=== PATIENT | male | born 1990 | race Caucasian/White ===

== ENCOUNTER → 2018-06-12 11:18 | Outpatient (CLI) | payer OTHER, SELFPAY ==
--- NOTE | 2018-06-12 11:33 | XR_ITS ---
XR ankle RT min 3V HISTORY: Right ankle pain ITS.REASON: RT ANKLE TENDINITIS ORDERING PHYSICIAN: Jose Nicolas MD PATIENT AGE: 28 years Comparison: None FINDINGS: No fracture or dislocation. No lytic or blastic change. There is normal mineralization.. The joint spaces are well-preserved. No significant degenerative/arthritic changes. No erosive changes evident. IMPRESSION: Negative ankle, no acute finding
== END ==
PROVIDERS: PCP Internal Medicine Adolescent Medicine; Visit Provider Internal Medicine Adolescent Medicine
DX: M76.61 Achilles tendinitis, right leg (principal)
CPT/HCPCS: 73610

== ENCOUNTER 2018-06-12 11:48 | Outpatient (RCR) | payer OTHER, SELFPAY | END 2018-06-12 11:55 | disposition home or self-care (01) | LOC: PT 11:48 | PROVIDERS: Visit Provider Internal Medicine Adolescent Medicine | DX: M76.61 Achilles tendinitis, right leg (principal) | CPT/HCPCS: 97760 ==

== ENCOUNTER → 2018-06-28 10:34 | Outpatient (CLI) | payer OTHER, SELFPAY ==
[2018-06-28 11:12] LABS: Basophils % 0.3 % (0.1-2.0); Eosinophils # 0.1 K/mm3 (0.0-0.4); Eosinophils % 1.1 % (0.1-12.0); Hematocrit 48.3 % (42.0-52.0); Hemoglobin 16.5 g/dL (14.1-18.0); Lymphocytes % 21.4 % (10-50); Mean Corpuscular HGB Conc 34.1 g/dL (31.8-35.4); Mean Corpuscular Volume 91.1 fl (80-94); Mean Platelet Volume 7.1 fl (7.4-10.4); Monocytes # 0.6 K/mm3 (0.1-1.0); Monocytes % 6.3 % (1.7-9.3); Neutrophils # 6.7 K/mm3 (1.8-7.8); Neutrophils % 70.7 % (37.0-80.0); Platelet Count 158 K/mm3 (142-424); Red Cell Distribution Width 12.4 % (11.5-17.5); White Blood Count 9.5 K/mm3 (4.8-10.8)
[2018-06-28 13:02] LABS: Alanine Aminotransferase 60 U/L (12-78); Albumin/Globulin Ratio 1.3 (1.1-1.8); Alkaline Phosphatase 101 U/L (46-116); Anion Gap 8.7 mEq/L (5-15); Aspartate Amino Transferase 18 U/L (15-37); Bilirubin,Total 0.4 mg/dL (0.2-1.0); Blood Urea Nitrogen 14 mg/dL (7-18); Calcium 9.4 mg/dL (8.5-10.1); Carbon Dioxide 31 mmol/L (21.0-32.0); Chloride 100 mmol/L (98-107); Creatinine,Serum 0.93 mg/dL (0.70-1.30); Estimated Glomerular Filt Rate 97 ml/min (>60); GFR (African American) 117 ML/MIN (>60); Globulin 3.2 gm/dl (1.3-3.2); Glucose 93 mg/dL (74-106); Potassium 4.7 mmoL/L (3.5-5.1); Sodium 135 mmol/L (136-145); Total Protein,Serum 7.2 gm/dL (6.4-8.2)
== END ==
PROVIDERS: Visit Provider Internal Medicine Adolescent Medicine
DX: I88.9 Nonspecific lymphadenitis, unspecified (principal)
CPT/HCPCS: 36415; 80053; 85025

== ENCOUNTER 2020-06-08 17:52 | Emergency (ER) | payer SELFPAY ==
[2020-06-08 17:54] VITALS: BP 116/86; PULSE 88; RESP 20; TEMP 37; O2SAT 98; BMI 24.7
--- NOTE | 2020-06-08 18:11 | HMH.EDUTC ---
[facility] [place] Disposition Clinical Impression: Conjunctivitis Qualifiers: Conjunctivitis type: unspecified Laterality: right Qualified Code(s): H10.9 - Unspecified conjunctivitis Disposition: Home, Self-Care Condition on Discharge: Good Instructions: How to Instill Eye Drops, Conjunctivitis, DI for Conjunctivitis, Polymyxin B and Trimethoprim Ophthalmic Additional Instructions: Wash hands well before and after applying eye drops in your eye Do not rub or scratch your eye Clean with warm wash rag with baby shampoo to prevent further irritation Follow up with Eye Doctor in the next couple of days if no improvement or immediately if any worsening of symptoms Return if needed Straight to ER if any life threatening symptoms Prescriptions: Polymyxin B Sulf/Trimethoprim [Polytrim Eye Drops] 2 drops EYE-RIGHT Q6H 7 Days #1 bottle Transmission Status: Received by [id number] Referrals: Jose Nicolas MD [Primary Care Provider] - As needed [facility] [Other] - As needed Forms: Work/School Release Time of Disposition: 18:23 Medical Decision Making - Oh Inquiry Pt receiving controlled substance: No Oh was queried for this patient: No Vital Signs: 06/08/20 17:54 06/08/20 18:27 Temperature 98.6 F 98.6 F Temperature Source Oral Oral Pulse Rate 88 Pulse Rate [Right Brachial] 88 Respiratory Rate 20 20 Blood Pressure 116/86 Blood Pressure [Right Arm] 116/86 Blood Pressure Mean [Right Arm] 96 Blood Pressure Source Automatic Cuff Blood Pressure Source [Right Arm] Automatic Cuff Blood Pressure Position Sitting Blood Pressure Position [Right Arm] Sitting 02 Sat by Pulse Oximetry 98 Oxygen Delivery Method Room Air Room Air - Physician Consults Physician Consulted: Dr Mckeon Time: 18:14 Reason -: Opthalmology Eval/Care Comment/Response: Patient discussed with Dr Mckeon and he agreed with treatment with Polytrim 2 drops q6h and follow up at the clinic if no improvement or any worsening of symptoms [facility] [place] HPI - General Stated complaint: foreign body in right eye Time Seen by Provider: 06/08/20 17:55 Mode of Arrival: Ambulatory Source of Information: Patient HEENT Symptoms (Recalled from RN notes): Yes Resp Symptoms (Recalled from RN notes): No Skin Symptoms (Recalled from RN notes): No MS Symptoms (Recalled from RN notes): No Functional Status (Recalled from RN notes): N/A - History of Present Illness Provider Complaint: Patient states that he woke up this morning with his right eye matted shut and draining sticky slim States that today his eye was looking red and continued to have drainage and felt like it had a film of slim in it and he would wipe it out and it would come back State that this evening he tried some left over erythromycin ointment in it and then came in to get it checked Denies getting anything in his eye and denies known injury - Related Data Previous Rx's Medication Instructions Recorded Polymyxin B Sulf/Trimethoprim 2 drops EYE-RIGHT Q6H 7 Days #1 06/08/20 [Polytrim Eye Drops] bottle Allergies Allergy/AdvReac Type Severity Reaction Status Date / Time No Known Allergies Allergy Verified 06/08/20 18:11 - Worker's Comp Is this a Worker's Comp case?: No [facility] History - Hepatitis A Screen Drug use history?: No High risk sexual behaviors?: No History of sexually transmitted infection?: No Currently employed?: No Childcare worker?: No Do you have indoor plumbing?: Yes Do you have electricity?: Yes Attestation statement:: This patient has been screened for Hepatitis A risk factors. I have reviewed the patient's past medical history: Yes - Social History Smoking Status: Current every day smoker Tobacco Type: cigarettes # Packs/Day (cigarettes): 1 Alcohol Intake: never Occupational Status: employed ROS Obtained: Yes All systems reviewed & no additional complaints, Yes Systems reviewed as appropriate & no additional complaints - Constitutional
[2020-06-08 18:27] VITALS: BP 116/86; PULSE 88; RESP 20; TEMP 37; O2SAT 98
== END 2020-06-08 18:29 | disposition home or self-care (01) ==
PROVIDERS: Emergency Provider Nurse Practitioner; PCP Internal Medicine Adolescent Medicine
DX: H10.31 Unspecified acute conjunctivitis, right eye (principal); F17.210 Nicotine dependence, cigarettes, uncomplicated
CPT/HCPCS: 99202; G0463

== ENCOUNTER 2022-10-31 16:52 | Emergency (ER) | payer OTHER, SELFPAY ==
[2022-10-31 16:55] VITALS: BP 160/106; PULSE 93; RESP 18; TEMP 36.6; O2SAT 98; BMI 24.3
--- NOTE | 2022-10-31 17:04 | PC.NURSE ---
Dr. Grant at [facility]
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
[2022-10-31 17:30] VITALS: BP 139/93; PULSE 98; RESP 18; O2SAT 98
--- NOTE | 2022-10-31 17:31 | PC.NURSE ---
pt going to radiology.
[2022-10-31 17:34] LABS: Basophils % 0.2 % (0.1-2.0); Eosinophils # 0.2 K/mm3 (0.0-0.4); Hematocrit 50.3 % (42.0-52.0); Lymphocytes # 1.7 K/mm3 (0.7-4.5); Lymphocytes % 10.4 % (10-50); Mean Corpuscular HGB Conc 33.8 g/dL (31.8-35.4); Mean Corpuscular Hemoglobin 31.2 pg (27.0-31.2); Mean Corpuscular Volume 92.3 fl (80-94); Mean Platelet Volume 7.8 fl (7.4-10.4); Monocytes # 0.9 K/mm3 (0.1-1.0); Monocytes % 5.3 % (1.7-9.3); Neutrophils # 13.7 K/mm3 (1.8-7.8); Neutrophils % 83.1 % (37.0-80.0); Platelet Count 187 K/mm3 (142-424); Red Blood Count 5.45 M/mm3 (4.60-6.20); Red Cell Distribution Width 12.9 % (11.5-17.5); White Blood Count 16.5 K/mm3 (4.8-10.8)
[2022-10-31 17:35] LABS: Chloride 103 mmol/L (98-107); Sodium 138 mmol/L (136-145)
[2022-10-31 17:37] LABS: MANUAL DIFFERENTIAL MANUAL DIFFERENTIAL (MANUAL DIFF)
[2022-10-31 17:38] LABS: Alanine Aminotransferase 57 U/L (12-78); Albumin Level 4.4 g/dl (3.5-5.0); Albumin/Globulin Ratio 1.3 (1.1-1.8); Alkaline Phosphatase 115 U/L (38-126); Aspartate Amino Transferase 65 U/L (17-59); Bilirubin,Total 0.7 mg/dl (0.2-1.3); Blood Urea Nitrogen 11 mg/dl (9-20); Carbon Dioxide 27 mmol/L (22.0-30.0); Creatinine Clearance Estimated 136 mL/min (50-200); Estimated Glomerular Filt Rate 112 ml/min (>60); GFR (African American) 136 ML/MIN (>60); Globulin 3.4 g/dL (1.3-3.2); Glucose 111 mg/dl (74-100); Total Protein,Serum 7.8 g/dl (6.3-8.2)
[2022-10-31 17:58] LABS: Hypochromasia 1+; Lymphocytes % 10 % (10-50); Monocytes % 5 % (2-9); Neutrophils % 85 % (42-76); Platelet Estimate Normal; Total Cells Counted 100
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
[2022-10-31 18:21] LABS: Microscopic, Urine URINE MICROSCOPIC (MICROSCOPIC)
--- NOTE | 2022-10-31 18:22 | PC.NURSE ---
RAD at [facility]
[2022-10-31 18:24] LABS: Appearance,Urine CLEAR (Clear); Bilirubin,Urine Negative (Negative); Blood, Urine TRACE-I (Negative); Color,Urine YELLOW (Yellow); Glucose,Urine (UA) Negative (Negative); Ketones,Urine Negative (Negative); Leukocyte Esterase,Urine Negative (Negative); Nitrate,Urine Negative (Negative); Protein,Urine Negative (Negative); Urobilinogen,Urine 0.2 EU/dl (0.2)
[2022-10-31 18:33] LABS: RBC,Urine Occasional #/hpf (0-3)
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
[2022-10-31 18:53] VITALS: BP 131/91; PULSE 85; RESP 15; O2SAT 98
--- NOTE | 2022-10-31 19:31 | PC.NURSE ---
Pt denies need for crutches, states he has them at home. Asking for something for pain Dr Grant aware.
[2022-10-31 19:32] VITALS: BP 132/85; PULSE 85; RESP 12; TEMP 36.6; O2SAT 99
== END 2022-10-31 19:37 | disposition home or self-care (01) ==
PROVIDERS: Emergency Provider Emergency Medicine; PCP Internal Medicine Adolescent Medicine
DX: S76.011A Strain of muscle, fascia and tendon of right hip, initial encounter (principal); R07.9 Chest pain, unspecified; R10.12 Left upper quadrant pain; M79.604 Pain in right leg; V86.95XA Unspecified occupant of 3- or 4- wheeled all-terrain vehicle (ATV) injured in nontraffic accident, initial encounter; F17.210 Nicotine dependence, cigarettes, uncomplicated
CPT/HCPCS: 70450; 71275; 72125; 72128; 72131; 72192; 73502; 73552; 73562; 74174; 80053; 81001; 85007; 85025; 96361; 96374; 96375; 99285; J2405; Q9967